=== PATIENT | male | born 1960 | race African-American/Black ===

== ENCOUNTER 2017-12-14 02:07 | Emergency (ER) | payer MEDICAID, MEDICARE ==
[~2017-12-14] VITALS: Ht 172.7 cm; Wt 84.0 kg
[~2017-12-14 02:07] MED LIST: ACETAMINOPHEN; BUSPAR; CARI350T27; HYDROCODONE; REMERON; SEROQUEL
[2017-12-14 07:01] VITALS: BP 128/84
== END 2017-12-14 08:24 | disposition left against medical advice (07) ==
LOC: ER 02:07
DX: R31.9 Hematuria, unspecified (principal); Z53.21 Procedure and treatment not carried out due to patient leaving prior to being seen by health care provider

== ENCOUNTER 2023-08-05 06:38 | Emergency (ER) | payer MEDICARE ==
[~2023-08-05] VITALS: Ht 170.2 cm; Wt 84.0 kg
[2023-08-05 06:43] VITALS: TEMP 98.2; O2SAT 99
[2023-08-05 08:12] LABS: CLARITY URINE CLEAR (CLEAR); COLOR URINE YELLOW (YELLOW); GLUCOSE URINE NEGATIVE (NEGATIVE); KETONES URINE NEGATIVE (NEGATIVE); LEUKOCYTE ESTERASE URINE NEGATIVE (NEGATIVE); NITRITE URINE NEGATIVE (NEGATIVE); OCCULT BLOOD URINE 2+ (NEGATIVE); PROTEIN URINE TRACE (NEGATIVE); SPECIFIC GRAVITY URINE 1.023 (1.005-1.030)
[2023-08-05 08:13] LABS: BACTERIA URINE NONE SEEN; SQUAMOUS EPITHELIAL CELL URINE 1+ /lpf (RARE/1+); WBC URINE 0-2 /hpf (0-2); YEAST URINE NONE SEEN
[2023-08-05 08:27] LABS: MUCUS URINE 2+ /lpf (NONE/TRACE)
[2023-08-05] MEDS ORDERED: KETOROLAC 30MG/ML VIAL IM ONE (08:45)
[2023-08-05] MEDS ORDERED: HYDROCODONE/ACETAMINOPHEN 5/325MG TABLET PO ONE (08:45)
[2023-08-05] MEDS ORDERED: HYDROCODONE/ACETAMINOPHEN 5/325MG TABLET PO SCH (09:45)
[2023-08-05] MEDS ORDERED: KETOROLAC 30MG/ML VIAL IM SCH (09:45)
[2023-08-05 09:57] LABS: BASOPHILS % 0.4 % (0.0-2.0); EOSINOPHILS % 0.5 % (0.0-5.0); HEMATOCRIT. 44.1 % (42.0-52.0); HEMOGLOBIN. 14.5 g/dL (14.0-18.0); LYMPHOCYTES % 13.8 % (20.0-50.0); MEAN CORPUSCULAR HEMOGLOBIN 30.3 pg (28.0-32.0); MEAN CORPUSCULAR HGB CONC 32.9 g/dL (31.0-37.0); MEAN CORPUSCULAR VOLUME 92.3 fL (80.0-94.0); MEAN PLATELET VOLUME 8.2 fl (7.4-10.4); MONOCYTES % 8.8 % (2.0-8.0); NEUTROPHILS % 76.5 % (40.0-76.0); PLATELET 227 x1000/uL (130-400); RED BLOOD CELL COUNT 4.78 mill/uL (4.7-6.1); RED CELL DISTRIBUTION WIDTH 13.5 % (11.6-14.6); WHITE BLOOD COUNT 8.1 x1000/uL (4.5-11.0)
[2023-08-05 10:04] LABS: ALBUMIN 4.1 g/dL (3.4-5.0); CALCIUM 8.9 mg/dL (8.5-10.1); CHLORIDE 110 mEq/L (98-107); POTASSIUM 4.2 mEq/L (3.5-5.1); SODIUM 140 mEq/L (136-145)
[2023-08-05 10:10] LABS: ALANINE AMINOTRANSFERASE 19 IU/L (13-61); ASPARTATE AMINOTRANSFERASE 17 IU/L (15-37); BILIRUBIN TOTAL 0.9 mg/dL (0.1-1.0); CARBON DIOXIDE 25 mEq/L (21-32); CREATININE 1.5 mg/dL (0.6-1.3); GLUCOSE 134 mg/dL (70-105); PROTEIN TOTAL 7.6 g/dL (6.0-8.3); UREA NITROGEN BLOOD 12 mg/dL (7-21)
[2023-08-05] MEDS ORDERED: SODIUM CHLORIDE 0.9% 1,000 ML IV ONE (10:15)
[2023-08-05] MEDS ORDERED: ONDANSETRON HCL 4MG/2ML INJ IV ONE (11:45)
[2023-08-05] MEDS ORDERED: MORPHINE SULFATE 4 MG/ML CPJ (NOT FOR IM USE) IV ONE (11:45)
[2023-08-05 12:55] VITALS: BP 128/86; PULSE 80; RESP 16
[2023-08-05] MEDS ORDERED: CEFP200T13 MT (13:13)
[2023-08-05] MEDS ORDERED: IBUP-2029 MT (13:13)
[2023-08-05] MEDS ORDERED: TAMS-11 MT (13:13)
[2023-08-05] MEDS ORDERED: HYDR-4001 MT (13:13)
== END 2023-08-05 13:30 | disposition home or self-care (01) ==
LOC: ER 06:51
DX: N20.0 Calculus of kidney (principal); N12 Tubulo-interstitial nephritis, not specified as acute or chronic; N17.9 Acute kidney failure, unspecified; N40.0 Benign prostatic hyperplasia without lower urinary tract symptoms; Z88.0 Allergy status to penicillin
CPT/HCPCS: 99285; 74176; 96374; 96361; 96375; 80053; 81003; 85025; 36415; 96372; J1885; J2405; J2270; J7030

== ENCOUNTER 2025-09-06 05:13 | Emergency (ER) | payer MEDICARE ==
[~2025-09-06] VITALS: Ht 172.7 cm; Wt 84.0 kg
[~2025-09-06 05:13] MED LIST changes: +CARI-517; -CARI350T27; +CEFP200T13 MT; +HYDR-4001 MT; +IBUP-1455 MT; +TAMS-54 MT
[2025-09-06 05:16] VITALS: O2SAT 98
[2025-09-06 05:22] VITALS: TEMP 36.9; O2SAT 98
[2025-09-06 06:19] VITALS: BP 141/95; PULSE 75; RESP 16
[2025-09-06] MEDS: IBUPROFEN 600MG TABLET PO ONE (06:19)
[2025-09-06] MEDS ORDERED: METH-653 MT (06:25)
== END 2025-09-06 06:48 | disposition home or self-care (01) ==
LOC: ER 05:13
DX: M54.2 Cervicalgia (principal); M54.9 Dorsalgia, unspecified; Z79.899 Other long term (current) drug therapy; Z88.0 Allergy status to penicillin
CPT/HCPCS: 99283

== ENCOUNTER 2025-09-26 06:39 | Emergency (ER) | payer MEDICARE ==
[~2025-09-26] VITALS: Ht 172.7 cm; Wt 84.1 kg
[~2025-09-26 06:39] MED LIST changes: +METH-653 MT
[2025-09-26 06:40] VITALS: O2SAT 98
[2025-09-26] MEDS ORDERED: DOXY100T2 PO (07:12)
[2025-09-26 07:15] VITALS: BP 131/92; PULSE 67; RESP 18; TEMP 37; O2SAT 99
[2025-09-26] MEDS: CEFTRIAXONE SODIUM 500MG VIAL IM ONE (07:20)
[2025-09-26] MEDS: DOXYCYCLINE HYCLATE 100MG CAPSULE PO ONE (07:20)
[2025-09-26 08:06] LABS: CLARITY URINE CLEAR (CLEAR); COLOR URINE YELLOW (YELLOW); GLUCOSE URINE NEGATIVE (NEGATIVE); KETONES URINE NEGATIVE (NEGATIVE); LEUKOCYTE ESTERASE URINE NEGATIVE (NEGATIVE); NITRITE URINE NEGATIVE (NEGATIVE); OCCULT BLOOD URINE NEGATIVE (NEGATIVE); PH URINE 7.0 (4.5-8.0); PROTEIN URINE NEGATIVE (NEGATIVE); SPECIFIC GRAVITY URINE 1.020 (1.005-1.030); UROBILINOGEN URINE 1.0 E.U./dL (0.2-1.0)
[2025-09-28 19:10] LABS: CHLAMYDIA TRACHOMATIS NAA Negative (Negative); NEISSERIA GONORRHOEAE NAA Negative (Negative)
== END 2025-09-26 07:17 | disposition home or self-care (01) ==
LOC: ER 06:39
DX: Z11.3 Encounter for screening for infections with a predominantly sexual mode of transmission (principal); Z88.0 Allergy status to penicillin
CPT/HCPCS: 99283; 87491; 87591; 81003; 96372; J0696